=== PATIENT | male | born 1995 | race African-American/Black ===

== ENCOUNTER 2018-11-23 07:29 | Emergency (ER) | payer BC ==
[2018-11-23] MEDS: CEFTRIAXONE 1 GM INJ IM (08:29)
[2018-11-23] MEDS: LIDOCAINE 1% (MPF) 5 ML VIAL INJ (08:30)
== END 2018-11-23 08:45 | disposition home or self-care (01) ==
LOC: FTE 07:29
DX: K08.89 Other specified disorders of teeth and supporting structures (principal)
CPT/HCPCS: 96372; 99284-25; J0696